=== PATIENT | male | born 1980 | race Caucasian/White ===

== ENCOUNTER 2017-10-28 20:38 | Emergency (ER) | payer OTHER ==
[~2017-10-28] VITALS: Ht 175.3 cm; Wt 81.4 kg
[~2017-10-28 20:38] MED LIST: CEPH500C5 PO
[2017-10-28 20:42] VITALS: BP 144/101
[2017-10-28] MEDS ORDERED: sulfamethoxazole/trimethoprim DS (800/160mg) tablet PO ONE (21:40)
[2017-10-28] MEDS ORDERED: SULF1TAB49 PO (21:48)
== END 2017-10-28 21:54 | disposition home or self-care (01) ==
LOC: ER 20:38
DX: L02.211 Cutaneous abscess of abdominal wall (principal); Z79.899 Other long term (current) drug therapy
CPT/HCPCS: 99283